=== PATIENT | male | born 1960 | race Hispanic/Latino ===

== ENCOUNTER 2021-10-30 10:17 | Emergency (ER) | payer OTHER ==
[~2021-10-30] VITALS: Ht 172.7 cm; Wt 90.7 kg
[2021-10-30] MEDS ORDERED: ACET1TAB25 PO (13:05)
[2021-10-30 14:10] VITALS: BP 119/69
== END 2021-10-30 14:24 | disposition home or self-care (01) ==
LOC: EDH 10:17
DX: S70.12XA Contusion of left thigh, initial encounter (principal); S80.211A Abrasion, right knee, initial encounter; S40.212A Abrasion of left shoulder, initial encounter; E11.9 Type 2 diabetes mellitus without complications; E78.00 Pure hypercholesterolemia, unspecified; I10 Essential (primary) hypertension; Z95.1 Presence of aortocoronary bypass graft; W18.39XA Other fall on same level, initial encounter; Y93.89 Activity, other specified; Y92.89 Other specified places as the place of occurrence of the external cause; Y99.8 Other external cause status
CPT/HCPCS: 73552; 93971